=== PATIENT | female | born 1990 | race Two or more races ===

== ENCOUNTER 2018-11-09 01:13 | Emergency (ER) | payer MEDICAID, OTHER ==
[~2018-11-09] VITALS: Ht 167.6 cm; Wt 111.1 kg
[2018-11-09 01:26] VITALS: BP 142/80
[2018-11-09] MEDS ORDERED: cefTRIAXone SOD 1,000 MG VL IM ONE (03:30)
[2018-11-09] MEDS ORDERED: ACETAMINOPHEN/CODEINE#3 (300/30mg) TAB PO ONE (03:30)
[2018-11-09] MEDS ORDERED: methylPREDNISolone SOD SUCC 125 MG/2 ML VL IM ONE (03:30)
[2018-11-09] MEDS ORDERED: LIDOCAINE 1% HCL (LOCAL ANESTH.) INJ 20ML MDV ONE (03:41)
== END 2018-11-09 04:25 | disposition home or self-care (01) ==
LOC: ER 01:17
DX: J03.90 Acute tonsillitis, unspecified (principal); J06.9 Acute upper respiratory infection, unspecified
CPT/HCPCS: 96372; 99283; J0696; J2001; J2930

== ENCOUNTER 2019-10-30 16:38 | Inpatient (IN) | payer OTHER ==
[~2019-10-30] VITALS: Ht 167.6 cm; Wt 114.0 kg
[2019-10-30] MEDS ORDERED: ACETAMINOPHEN 325 MG TAB PO ONE (17:15)
[2019-10-30] MEDS ORDERED: POTASSIUM EFFERVESENT TAB 25 MEQ PO ONE (17:30)
[2019-10-30] MEDS ORDERED: ZINC SULFATE 220mg CAP or TAB PO ONE (19:30)
[2019-10-30] MEDS ORDERED: ASCORBIC ACID 500 MG TAB PO ONE (19:30)
[2019-10-30] MEDS ORDERED: AZITHROMYCIN 500MG/ 250ML 250 ML IV ONE (19:30)
[2019-10-30] MEDS ORDERED: SODIUM CHLORIDE 0.9% 1,000 ML IV SCH (20:50)
[2019-10-30] MEDS ORDERED: TEMAZEPAM 15 MG CAP PO PRN (21:00)
[2019-10-30] MEDS ORDERED: ONDANSETRON HCL 4 MG/2 ML VIAL IV PRN (21:00)
[2019-10-30 21:43] LABS: Basophils # (auto) 0 10 ^3/uL (0-0.2); Basophils % (auto) 0.3 % (0.0-2.0); Eosinophils # (auto) 0 10 ^3/uL (0-0.8); Hemoglobin 10.3 g/dL (12.2-16.2); Lymphocytes # (auto) 0.7 10 ^3/uL (0.4-5.4); Monocytes # (auto) 0.2 10 ^3/uL (0-1.3); Monocytes % (auto) 6.6 % (0.0-12.0)
[2019-10-30 21:45] LABS: Hematocrit 32.4 % (36.0-46.0); Lymphocytes % (auto) 28.8 % (10.0-50.0); Mean Corpuscular Hemoglobin 23.5 pg (28.0-32.0); Mean Corpuscular Hgb Conc. 31.7 g/dL (32.0-36.0); Neutrophils # (auto) 1.7 10 ^3/uL (1.6-8.6); Neutrophils % (auto) 64.3 % (37.0-80.0); Nucleated Red Blood Cells % 0.3 %; Platelet Count (auto) 171 10^3/uL (140-450); Red Blood Cells 4.38 10^6/uL (4.0-5.20); Red Cell Distribution Width 16.5 % (11.8-14.3); White Blood Cell 2.6 10^3/uL (4.4-10.8)
[2019-10-30] MEDS ORDERED: MORPHINE SULF INJ 2 MG/ML SYRINGE 1ML IV PRN (21:45)
[2019-10-30] MEDS ORDERED: NITROGLYCERIN 0.4 MG SL TAB SL PRN (21:45)
[2019-10-30] MEDS ORDERED: DOXYCYCLINE 100MG/250ML 250 ML IV SCH (22:00)
[2019-10-30 22:01] LABS: Albumin 3.7 g/dL (3.4-5.0); Calcium 7.9 mg/dL (8.5-10.1); Potassium 3.1 mmol/L (3.5-5.1)
[2019-10-30 22:03] LABS: BUN/Creatinine Ratio 10.7; Bilirubin, Total 0.4 mg/dL (0.2-1.0); Total Protein 8.1 g/dL (6.4-8.2)
[2019-10-30 22:19] LABS: CRP High Sensitivity 4.41 mg/dL (< 0.3)
[2019-10-30] MEDS ORDERED: POTASSIUM CHL 20 Meq TABLET PO ONE (23:00)
[2019-10-31] MEDS: FAMOTIDINE 20 MG TAB PO SCH ×3 (00:15→22:06)
[2019-10-31] MEDS: OXcarbazepine 300 MG TAB PO SCH ×3 (00:15→22:07)
[2019-10-31] MEDS: ACETAMINOPHEN 325 MG TAB PO PRN ×3 (08:25→22:10)
[2019-10-31 08:31] LABS: Hemoglobin 8.8 g/dL (12.2-16.2); Mean Corpuscular Volume 73.7 fL (80.0-100.0); Red Cell Distribution Width 16.3 % (11.8-14.3)
[2019-10-31 08:33] LABS: Hematocrit 27.5 % (36.0-46.0); Mean Corpuscular Hemoglobin 23.6 pg (28.0-32.0); Platelet Count (auto) 131 10^3/uL (140-450); Red Blood Cells 3.73 10^6/uL (4.0-5.20)
[2019-10-31 08:37] LABS: White Blood Cell 1.8 10^3/uL (4.4-10.8)
[2019-10-31 08:39] LABS: Basophils % (manual) 0 (0.0-2.0); Blast Cells 0; Eosinophils % (manual) 0 (0-7); Metamyelocytes % 0; Myelocytes % 0; Promyelocytes % 0; Reactive Lymphocytes 0
[2019-10-31 08:50] LABS: Albumin 2.7 g/dL (3.4-5.0); Calcium 6.7 mg/dL (8.5-10.1)
[2019-10-31 08:54] LABS: BUN/Creatinine Ratio 10.9; Bilirubin, Total 0.2 mg/dL (0.2-1.0); Total Protein 5.9 g/dL (6.4-8.2)
[2019-10-31 08:58] LABS: Potassium 2.8 mmol/L (3.5-5.1)
[2019-10-31 09:10] LABS: Band Neutrophils % (manual) 1; Lymphocytes % (manual) 29 (10.0-50.0); Monocytes % (manual) 7 (0-12)
[2019-10-31] MEDS: DOXYCYCLINE 100 MG TAB/CAP PO SCH ×2 (09:38→22:07)
[2019-10-31] MEDS: ZINC SULFATE 220mg CAP or TAB PO SCH (09:38)
[2019-10-31] MEDS: CHOLECALCIFEROL (VITD3) 1,000IU=25mCg TAB PO SCH (09:39)
[2019-10-31] MEDS: ASCORBIC ACID 1,000 MG TAB PO SCH (09:41)
[2019-10-31] MEDS ORDERED: ENOXAPARIN SOD 40 MG/0.4 ML SYRINGE SC SCH (10:00)
[2019-10-31] MEDS ORDERED: POTASSIUM CHL 20 Meq TABLET PO ONE (11:30)
[2019-10-31] MEDS ORDERED: IOHEXOL 300 MG/ML 100ML BOTTLE IJ ONE (12:37)
[2019-10-31 13:00] VITALS: BP 121/69
[2019-10-31 14:35] VITALS: BP 121/69
[2019-10-31 16:20] LABS: Urine Bacteria NONE SEEN /hpf (None Seen); Urine Blood Negative /uL (Negative); Urine Specific Gravity 1.029 (1.001-1.035); Urine WBC 1 /hpf (0 - 5)
[2019-10-31 16:42] LABS: Amphetamine Screen, Urine NEGATIVE (NEGATIVE); Barbiturate Scree,Urine NEGATIVE (NEGATIVE); Benzodiazephine Screen, Urine NEGATIVE (NEGATIVE); Cannabinoid Screen, Urine NEGATIVE (NEGATIVE); Cocaine Screen, Urine NEGATIVE (NEGATIVE); Opiate Scree,Urine NEGATIVE (NEGATIVE); Phencyclidine Screen, Urine NEGATIVE (NEGATIVE)
[2019-10-31 17:13] VITALS: BP 115/65
[2019-10-31 22:00] VITALS: BP 128/64
[2019-10-31] MEDS: ENOXAPARIN SOD 40 MG/0.4 ML SYRINGE SC SCH (22:08)
[2019-11-01 05:00] VITALS: BP 117/51
[2019-11-01] MEDS: LEVOTHYROXINE SODIUM 50 MCG TAB PO SCH ×2 (06:28→11:55)
[2019-11-01] MEDS: ACETAMINOPHEN 325 MG TAB PO PRN ×3 (06:28→23:04)
[2019-11-01 09:00] VITALS: BP_SYST 106; BP_SYST 108; BP_DIAS 60; BP_DIAS 64
[2019-11-01] MEDS: guaiFENesin-DM 100/10mg/5ml SYR PO PRN ×3 (11:30→23:25)
[2019-11-01] MEDS: PROMETHAZINE HCL 25 MG/ML 1ML IV PRN ×3 (11:30→23:24)
[2019-11-01] MEDS: ENOXAPARIN SOD 40 MG/0.4 ML SYRINGE SC SCH ×2 (11:55→23:02)
[2019-11-01] MEDS: CHOLECALCIFEROL (VITD3) 1,000IU=25mCg TAB PO SCH (11:56)
[2019-11-01] MEDS: ASCORBIC ACID 1,000 MG TAB PO SCH (11:56)
[2019-11-01] MEDS: ZINC SULFATE 220mg CAP or TAB PO SCH (11:57)
[2019-11-01] MEDS: FAMOTIDINE 20 MG TAB PO SCH ×2 (11:57→23:01)
[2019-11-01] MEDS: DOXYCYCLINE 100 MG TAB/CAP PO SCH ×2 (11:57→23:02)
[2019-11-01] MEDS: OXcarbazepine 300 MG TAB PO SCH ×2 (11:58→23:02)
[2019-11-01 13:00] VITALS: BP 114/69
[2019-11-01] MEDS ORDERED: CEFTRIAXONE SODIUM 2 GM in D5W 5% 50 ML IV ONE (13:00)
[2019-11-01 16:57] LABS: Basophils # (auto) 0 10 ^3/uL (0-0.2); Eosinophils # (auto) 0 10 ^3/uL (0-0.8); Eosinophils % (auto) 0.1 % (0.0-7.0); Lymphocytes # (auto) 0.5 10 ^3/uL (0.4-5.4); Monocytes # (auto) 0.1 10 ^3/uL (0-1.3)
[2019-11-01 17:00] VITALS: BP 107/62
[2019-11-01 17:01] LABS: Basophils % (auto) 0.3 % (0.0-2.0); Hematocrit 28.8 % (36.0-46.0); Hemoglobin 9.2 g/dL (12.2-16.2); Lymphocytes % (auto) 19.1 % (10.0-50.0); Mean Corpuscular Hemoglobin 23.3 pg (28.0-32.0); Mean Corpuscular Hgb Conc. 31.8 g/dL (32.0-36.0); Mean Corpuscular Volume 73.2 fL (80.0-100.0); Monocytes % (auto) 4.5 % (0.0-12.0); Nucleated Red Blood Cells % 0.2 %; Platelet Count (auto) 159 10^3/uL (140-450); Red Blood Cells 3.94 10^6/uL (4.0-5.20); Red Cell Distribution Width 16.6 % (11.8-14.3); White Blood Cell 2.7 10^3/uL (4.4-10.8)
[2019-11-01 17:09] LABS: BUN/Creatinine Ratio 14.1; Calcium 7.9 mg/dL (8.5-10.1); Magnesium 2.4 mg/dL (1.6-2.6); Potassium 3.1 mmol/L (3.5-5.1)
[2019-11-01 22:00] VITALS: BP 114/65
[2019-11-02 05:00] VITALS: BP 107/57
[2019-11-02] MEDS: guaiFENesin-DM 100/10mg/5ml SYR PO PRN ×3 (08:29→23:15)
[2019-11-02] MEDS: PROMETHAZINE HCL 25 MG/ML 1ML IV PRN ×2 (08:29→14:45)
[2019-11-02 09:00] VITALS: BP 111/69
[2019-11-02] MEDS: cefTRIAXone 1GM/50ML D5W 50 ML IV SCH (09:41)
[2019-11-02] MEDS: ASCORBIC ACID 1,000 MG TAB PO SCH (09:42)
[2019-11-02] MEDS: OXcarbazepine 300 MG TAB PO SCH ×2 (09:42→22:25)
[2019-11-02] MEDS: FAMOTIDINE 20 MG TAB PO SCH ×2 (09:42→22:25)
[2019-11-02] MEDS: ZINC SULFATE 220mg CAP or TAB PO SCH (09:42)
[2019-11-02] MEDS: DOXYCYCLINE 100 MG TAB/CAP PO SCH ×2 (09:42→22:25)
[2019-11-02] MEDS: CHOLECALCIFEROL (VITD3) 1,000IU=25mCg TAB PO SCH (09:43)
[2019-11-02] MEDS: ENOXAPARIN SOD 40 MG/0.4 ML SYRINGE SC SCH ×2 (09:43→22:25)
[2019-11-02] MEDS ORDERED: POTASSIUM CHL 20 Meq TABLET PO ONE (10:45)
[2019-11-02] MEDS ORDERED: POTASSIUM CHL 20MEQ/100ML 100 ML IV ONE (10:45)
[2019-11-02 12:30] LABS: Basophils # (auto) 0 10 ^3/uL (0-0.2); Basophils % (auto) 0.2 % (0.0-2.0); Eosinophils # (auto) 0 10 ^3/uL (0-0.8); Eosinophils % (auto) 0.1 % (0.0-7.0); Hemoglobin 9.3 g/dL (12.2-16.2); Mean Corpuscular Hemoglobin 23.1 pg (28.0-32.0); Monocytes # (auto) 0.2 10 ^3/uL (0-1.3); Neutrophils # (auto) 2.2 10 ^3/uL (1.6-8.6); Neutrophils % (auto) 77.9 % (37.0-80.0); Nucleated Red Blood Cells % 0.1 %; Platelet Count (auto) 169 10^3/uL (140-450)
[2019-11-02 12:32] LABS: Hematocrit 29.4 % (36.0-46.0); Lymphocytes # (auto) 0.5 10 ^3/uL (0.4-5.4); Lymphocytes % (auto) 16.3 % (10.0-50.0); Mean Corpuscular Hgb Conc. 31.5 g/dL (32.0-36.0); Mean Corpuscular Volume 73.4 fL (80.0-100.0); Monocytes % (auto) 5.5 % (0.0-12.0); Red Cell Distribution Width 16.6 % (11.8-14.3); White Blood Cell 2.8 10^3/uL (4.4-10.8)
[2019-11-02 12:43] LABS: Calcium 8.1 mg/dL (8.5-10.1); Potassium 3.3 mmol/L (3.5-5.1)
[2019-11-02 12:46] VITALS: BP 109/62
[2019-11-02 12:52] LABS: BUN/Creatinine Ratio 18.5; CRP High Sensitivity 10.1 mg/dL (< 0.3)
[2019-11-02] MEDS: ACETAMINOPHEN 325 MG TAB PO PRN (12:58)
[2019-11-02] MEDS: ALBUTEROL SULF HFA 90MCG INH 200DOSE IN SCH ×2 (14:36→22:00)
[2019-11-02 16:56] VITALS: BP 103/56
[2019-11-02] MEDS ORDERED: REMDESIVIR 200 MG in NS 210ml LOADING DOSE ADULT IV ONE (17:00)
[2019-11-02 22:00] VITALS: BP 115/62
[2019-11-03] VITALS (9 sets, daily range): BP systolic 93–115; BP diastolic 42–63
[2019-11-03] MEDS: LEVOTHYROXINE SODIUM 50 MCG TAB PO SCH (06:11)
[2019-11-03] MEDS: ALBUTEROL SULF HFA 90MCG INH 200DOSE IN SCH ×3 (06:18→22:48)
[2019-11-03 08:25] LABS: Basophils # (auto) 0 10 ^3/uL (0-0.2); Basophils % (auto) 0.3 % (0.0-2.0); Eosinophils # (auto) 0 10 ^3/uL (0-0.8); Hemoglobin 8.9 g/dL (12.2-16.2); Neutrophils # (auto) 1.6 10 ^3/uL (1.6-8.6); White Blood Cell 2.4 10^3/uL (4.4-10.8)
[2019-11-03 08:27] LABS: Eosinophils % (auto) 0.7 % (0.0-7.0); Lymphocytes # (auto) 0.6 10 ^3/uL (0.4-5.4); Lymphocytes % (auto) 23.9 % (10.0-50.0); Mean Corpuscular Hemoglobin 23.6 pg (28.0-32.0); Mean Corpuscular Hgb Conc. 31.9 g/dL (32.0-36.0); Monocytes # (auto) 0.2 10 ^3/uL (0-1.3); Monocytes % (auto) 9.5 % (0.0-12.0); Neutrophils % (auto) 65.6 % (37.0-80.0); Nucleated Red Blood Cells % 0.3 %; Platelet Count (auto) 176 10^3/uL (140-450); Red Blood Cells 3.79 10^6/uL (4.0-5.20); Red Cell Distribution Width 16.4 % (11.8-14.3)
[2019-11-03 08:37] LABS: Calcium 8.4 mg/dL (8.5-10.1); Potassium 3.6 mmol/L (3.5-5.1)
[2019-11-03 08:46] LABS: Albumin 2.7 g/dL (3.4-5.0); BUN/Creatinine Ratio 30.8; Bilirubin, Total 0.3 mg/dL (0.2-1.0); Total Protein 6.5 g/dL (6.4-8.2)
[2019-11-03] MEDS: DexAMETHasone SOD PHOS 4 MG/1ML SDV INJ IV SCH (10:36)
[2019-11-03] MEDS: cefTRIAXone 1GM/50ML D5W 50 ML IV SCH (10:36)
[2019-11-03] MEDS: FAMOTIDINE 20 MG TAB PO SCH ×2 (10:37→22:48)
[2019-11-03] MEDS: DOXYCYCLINE 100 MG TAB/CAP PO SCH ×2 (10:37→22:49)
[2019-11-03] MEDS: ASCORBIC ACID 1,000 MG TAB PO SCH (10:37)
[2019-11-03] MEDS: CHOLECALCIFEROL (VITD3) 1,000IU=25mCg TAB PO SCH (10:37)
[2019-11-03] MEDS: ENOXAPARIN SOD 40 MG/0.4 ML SYRINGE SC SCH ×2 (10:38→22:49)
[2019-11-03] MEDS: ZINC SULFATE 220mg CAP or TAB PO SCH (10:38)
[2019-11-03] MEDS: OXcarbazepine 300 MG TAB PO SCH ×2 (10:39→22:48)
[2019-11-03] MEDS: REMDESIVIR 100mg in NS 230ml DAILYx4DAYS (NO VENT) IV SCH (17:47)
[2019-11-04] MEDS: guaiFENesin-DM 100/10mg/5ml SYR PO PRN ×2 (00:11→11:00)
[2019-11-04] MEDS: PROMETHAZINE HCL 25 MG/ML 1ML IV PRN ×2 (00:20→11:21)
[2019-11-04 05:56] VITALS: BP 93/49
[2019-11-04] MEDS: LEVOTHYROXINE SODIUM 50 MCG TAB PO SCH (06:23)
[2019-11-04] MEDS: ALBUTEROL SULF HFA 90MCG INH 200DOSE IN SCH ×3 (06:38→21:49)
[2019-11-04 08:30] VITALS: BP 105/55
[2019-11-04] MEDS: FAMOTIDINE 20 MG TAB PO SCH ×2 (10:52→22:07)
[2019-11-04] MEDS: DexAMETHasone SOD PHOS 4 MG/1ML SDV INJ IV SCH (10:52)
[2019-11-04] MEDS: ZINC SULFATE 220mg CAP or TAB PO SCH (10:52)
[2019-11-04] MEDS: cefTRIAXone 1GM/50ML D5W 50 ML IV SCH (10:52)
[2019-11-04] MEDS: DOXYCYCLINE 100 MG TAB/CAP PO SCH ×2 (10:53→22:08)
[2019-11-04] MEDS: ASCORBIC ACID 1,000 MG TAB PO SCH (10:53)
[2019-11-04] MEDS: OXcarbazepine 300 MG TAB PO SCH ×2 (10:53→22:07)
[2019-11-04] MEDS: CHOLECALCIFEROL (VITD3) 1,000IU=25mCg TAB PO SCH (10:54)
[2019-11-04] MEDS: ENOXAPARIN SOD 40 MG/0.4 ML SYRINGE SC SCH ×2 (10:54→22:09)
[2019-11-04 12:00] VITALS: BP 91/52
[2019-11-04 16:30] VITALS: BP 98/54
[2019-11-04] MEDS: REMDESIVIR 100mg in NS 230ml DAILYx4DAYS (NO VENT) IV SCH (17:20)
[2019-11-04 21:56] VITALS: BP 108/65
[2019-11-05 05:07] VITALS: BP 100/61
[2019-11-05] MEDS: LEVOTHYROXINE SODIUM 50 MCG TAB PO SCH (06:22)
[2019-11-05] MEDS: ALBUTEROL SULF HFA 90MCG INH 200DOSE IN SCH ×3 (06:23→22:02)
[2019-11-05] MEDS: ASCORBIC ACID 1,000 MG TAB PO SCH (11:06)
[2019-11-05] MEDS: DexAMETHasone SOD PHOS 4 MG/1ML SDV INJ IV SCH (11:06)
[2019-11-05] MEDS: CHOLECALCIFEROL (VITD3) 1,000IU=25mCg TAB PO SCH (11:06)
[2019-11-05] MEDS: cefTRIAXone 1GM/50ML D5W 50 ML IV SCH (11:06)
[2019-11-05] MEDS: DOXYCYCLINE 100 MG TAB/CAP PO SCH (11:07)
[2019-11-05] MEDS: FAMOTIDINE 20 MG TAB PO SCH ×2 (11:07→21:52)
[2019-11-05] MEDS: OXcarbazepine 300 MG TAB PO SCH ×2 (11:07→21:53)
[2019-11-05] MEDS: ZINC SULFATE 220mg CAP or TAB PO SCH (11:07)
[2019-11-05] MEDS: ENOXAPARIN SOD 40 MG/0.4 ML SYRINGE SC SCH ×2 (11:08→21:54)
[2019-11-05 12:37] VITALS: BP 108/55
[2019-11-05 17:31] VITALS: BP 117/66
[2019-11-05] MEDS: REMDESIVIR 100mg in NS 230ml DAILYx4DAYS (NO VENT) IV SCH (19:04)
[2019-11-05 21:00] VITALS: BP 103/59
[2019-11-06] VITALS (7 sets, daily range): BP systolic 95–107; BP diastolic 50–62
[2019-11-06] MEDS: ALBUTEROL SULF HFA 90MCG INH 200DOSE IN SCH ×3 (06:00→21:39)
[2019-11-06] MEDS: LEVOTHYROXINE SODIUM 50 MCG TAB PO SCH (06:45)
[2019-11-06 07:09] LABS: Basophils # (auto) 0 10 ^3/uL (0-0.2); Basophils % (auto) 0.4 % (0.0-2.0); Hematocrit 29.4 % (36.0-46.0); Lymphocytes # (auto) 1.5 10 ^3/uL (0.4-5.4); Mean Corpuscular Volume 72.9 fL (80.0-100.0); Neutrophils # (auto) 2.3 10 ^3/uL (1.6-8.6); Nucleated Red Blood Cells % 0.1 %; Red Blood Cells 4.04 10^6/uL (4.0-5.20); White Blood Cell 4.3 10^3/uL (4.4-10.8)
[2019-11-06 07:11] LABS: Eosinophils # (auto) 0 10 ^3/uL (0-0.8); Eosinophils % (auto) 1.1 % (0.0-7.0); Hemoglobin 9.4 g/dL (12.2-16.2); Lymphocytes % (auto) 34.6 % (10.0-50.0); Mean Corpuscular Hemoglobin 23.3 pg (28.0-32.0); Mean Corpuscular Hgb Conc. 31.9 g/dL (32.0-36.0); Monocytes # (auto) 0.5 10 ^3/uL (0-1.3); Monocytes % (auto) 11.1 % (0.0-12.0); Neutrophils % (auto) 52.8 % (37.0-80.0); Platelet Count (auto) 293 10^3/uL (140-450); Red Cell Distribution Width 16.5 % (11.8-14.3)
[2019-11-06 07:31] LABS: Albumin 2.7 g/dL (3.4-5.0); Calcium 8.4 mg/dL (8.5-10.1); Potassium 3.5 mmol/L (3.5-5.1)
[2019-11-06 07:39] LABS: BUN/Creatinine Ratio 35.7; Bilirubin, Total 0.3 mg/dL (0.2-1.0); CRP High Sensitivity 1.72 mg/dL (< 0.3); Total Protein 6.5 g/dL (6.4-8.2)
[2019-11-06] MEDS: DexAMETHasone SOD PHOS 4 MG/1ML SDV INJ IV SCH (09:55)
[2019-11-06] MEDS: ASCORBIC ACID 1,000 MG TAB PO SCH (09:56)
[2019-11-06] MEDS: CHOLECALCIFEROL (VITD3) 1,000IU=25mCg TAB PO SCH (09:56)
[2019-11-06] MEDS: cefTRIAXone 1GM/50ML D5W 50 ML IV SCH (09:56)
[2019-11-06] MEDS: FAMOTIDINE 20 MG TAB PO SCH ×2 (09:56→21:37)
[2019-11-06] MEDS: ZINC SULFATE 220mg CAP or TAB PO SCH (09:57)
[2019-11-06] MEDS: OXcarbazepine 300 MG TAB PO SCH ×2 (09:57→21:37)
[2019-11-06] MEDS: ENOXAPARIN SOD 40 MG/0.4 ML SYRINGE SC SCH ×2 (09:58→21:38)
[2019-11-06] MEDS ORDERED: FUROSEMIDE 20 MG/2 ML VIAL IV ONE (10:15)
[2019-11-06] MEDS: REMDESIVIR 100mg in NS 230ml DAILYx4DAYS (NO VENT) IV SCH (17:49)
[2019-11-07 05:00] VITALS: BP 102/51
[2019-11-07] MEDS: ALBUTEROL SULF HFA 90MCG INH 200DOSE IN SCH ×3 (06:24→22:19)
[2019-11-07] MEDS: LEVOTHYROXINE SODIUM 50 MCG TAB PO SCH (06:24)
[2019-11-07 09:00] VITALS: BP 97/54
[2019-11-07] MEDS: cefTRIAXone 1GM/50ML D5W 50 ML IV SCH (11:17)
[2019-11-07] MEDS: DexAMETHasone SOD PHOS 4 MG/1ML SDV INJ IV SCH (11:17)
[2019-11-07] MEDS: ZINC SULFATE 220mg CAP or TAB PO SCH (11:17)
[2019-11-07] MEDS: ASCORBIC ACID 1,000 MG TAB PO SCH (11:18)
[2019-11-07] MEDS: CHOLECALCIFEROL (VITD3) 1,000IU=25mCg TAB PO SCH (11:18)
[2019-11-07] MEDS: FAMOTIDINE 20 MG TAB PO SCH ×2 (11:18→22:19)
[2019-11-07] MEDS: ENOXAPARIN SOD 40 MG/0.4 ML SYRINGE SC SCH ×2 (11:19→22:20)
[2019-11-07] MEDS: OXcarbazepine 300 MG TAB PO SCH ×2 (11:19→22:19)
[2019-11-07 13:00] VITALS: BP 97/54
[2019-11-07 16:50] VITALS: BP 133/74
[2019-11-07 22:41] VITALS: BP 98/52
[2019-11-08 05:12] VITALS: BP 94/43
[2019-11-08] MEDS: ALBUTEROL SULF HFA 90MCG INH 200DOSE IN SCH ×2 (06:39→14:38)
[2019-11-08] MEDS: LEVOTHYROXINE SODIUM 50 MCG TAB PO SCH (06:40)
[2019-11-08 08:38] VITALS: BP 90/48
[2019-11-08] MEDS: cefTRIAXone 1GM/50ML D5W 50 ML IV SCH (09:48)
[2019-11-08] MEDS: ZINC SULFATE 220mg CAP or TAB PO SCH (09:49)
[2019-11-08] MEDS: FAMOTIDINE 20 MG TAB PO SCH (09:49)
[2019-11-08] MEDS: CHOLECALCIFEROL (VITD3) 1,000IU=25mCg TAB PO SCH (09:50)
[2019-11-08] MEDS: ENOXAPARIN SOD 40 MG/0.4 ML SYRINGE SC SCH (09:50)
[2019-11-08] MEDS: OXcarbazepine 300 MG TAB PO SCH (09:50)
[2019-11-08] MEDS: ASCORBIC ACID 1,000 MG TAB PO SCH (09:50)
[2019-11-08] MEDS: DexAMETHasone SOD PHOS 4 MG/1ML SDV INJ IV SCH (11:12)
[2019-11-08 12:49] VITALS: BP 95/53
[2019-11-08] MEDS ORDERED: ASCO10003 PO (16:06)
[2019-11-08] MEDS ORDERED: ALBUAER3 IN (16:06)
[2019-11-08] MEDS ORDERED: METH4PAK PO (16:06)
[2019-11-08] MEDS ORDERED: CHOL20007 PO (16:06)
[2019-11-08] MEDS ORDERED: LEV50T PO (16:07)
[2019-11-08] MEDS ORDERED: FAM20T PO (16:07)
[2019-11-08] MEDS ORDERED: DEXT1SYP9 PO (16:10)
[2019-11-08 16:19] VITALS: BP 94/55
[2019-11-08 16:45] VITALS: BP 100/55
== END 2019-11-08 19:05 | disposition home or self-care (01) | DRG 177 ==
LOC: ER 16:38 → TELE 16:39 → TELE-EAST 10-31 14:38 → TELE-E-ADS 11-06 21:48
PROVIDERS: ADMIT Nurse Practitioner; ATTEND Internal Medicine
PROC: 30233K1 Transfusion of Nonautologous Frozen Plasma into Peripheral Vein, Percutaneous Approach (ICD-10-PCS; principal; 2019-11-03)
DX: U07.1 COVID-19 (principal); J12.89 Other viral pneumonia; J96.01 Acute respiratory failure with hypoxia; R65.10 Systemic inflammatory response syndrome (SIRS) of non-infectious origin without acute organ dysfunction; E44.0 Moderate protein-calorie malnutrition; Z68.41 Body mass index [BMI] 40.0-44.9, adult; E66.9 Obesity, unspecified; E87.6 Hypokalemia; E03.9 Hypothyroidism, unspecified; G40.909 Epilepsy, unspecified, not intractable, without status epilepticus; Z79.899 Other long term (current) drug therapy
CPT/HCPCS: 36415; 71045; 71260; 80048; 80053; 80307; 81001; 82728; 83605; 83615; 83735; 84132; 84443; 85007; 85025; 85027; 85379; 85652; 86141; 86850; 86900; 86901; 87040; 87070; 87635; 87804; 87880; 93005; 94640; G0378; J0696; J1100; J2405; J3480; J7060